=== PATIENT | female | born 1985 | race Caucasian/White ===

== ENCOUNTER 2018-04-21 22:38 | Emergency (ER) | payer OTHER ==
[2018-04-21] MEDS ORDERED: NACL 0.9% 1000 ML 1,000 ML IV ONE (23:26)
[2018-04-21] MEDS ORDERED: ZOFRAN IV ONE (23:26)
[2018-04-21] MEDS ORDERED: TYLENOL PO ONE (23:27)
--- NOTE | 2018-04-21 23:30 | Emergency Department Report ---
ED Female HPI - General Chief complaint: Vaginal Bleeding Stated complaint: ABDOMINAL PAIN/VAGINAL BLEEDING Time Seen by Provider: 04/21/18 23:10 Source: patient Mode of arrival: Stretcher Limitations: No Limitations - History of Present Illness Initial comments: Ms. Broussard is a who is 8 weeks . She is healthy. She has hx of kidney stones. Confirmed at [facility] 2 weeks ago. Suddenly onset of contractions, pelvic pain and cramping. Severe vaginal bleeding one hour ago. MD Complaint: vaginal bleeding -: Sudden, hour(s) (1) Location: suprapubic Radiation: non-radiating Severity: severe Quality: cramping Consistency: constant Are you Now?: Yes Last Menstrual Period: 02/15/18 EDC: 11/22/18 Associated Symptoms: vaginal bleeding, abdominal pain. denies: nausea/vomiting , fever/chills, headaches, loss of appetite, shortness of breath - Related Data Previous Rx's Medication Instructions Recorded Last Taken Type HYDROcodone/APAP 5-325 [[place] 1 each PO Q6HR PRN #10 tablet 04/22/18 Unknown Rx 5/325] Ibuprofen 800 mg PO Q6H PRN #15 tablet 04/22/18 Unknown Rx Allergies Allergy/AdvReac Type Severity Reaction Status Date / Time No Known Allergies Allergy Unverified 04/21/18 23:14 ED Review of Systems ROS: Stated complaint: ABDOMINAL PAIN/VAGINAL BLEEDING Other details as noted in HPI Comment: All other systems reviewed and negative Constitutional: denies: fever, malaise Respiratory: denies: cough Cardiovascular: denies: chest pain ED Past Medical Hx - Past Medical History Hx Kidney Stones: Yes - Surgical History Past Surgical History?: No - Social History Smoking Status: Never Smoker Substance Use Type: None - Medications Home Medications: Home Medications Medication Instructions Recorded Confirmed Last Taken Type HYDROcodone/APAP 5-325 [[place] 1 each PO Q6HR PRN #10 tablet 04/22/18 Unknown Rx 5/325] Ibuprofen 800 mg PO Q6H PRN #15 tablet 04/22/18 Unknown Rx ED Physical Exam - General Limitations: No Limitations General appearance: alert, in no apparent distress - Head Head exam: Present: atraumatic, normocephalic - Eye Eye exam: Present: normal appearance - ENT ENT exam: Present: mucous membranes moist - Neck Neck exam: Present: normal inspection. Absent: tenderness, meningismus - Respiratory Respiratory exam: Present: normal lung sounds bilaterally. Absent: respiratory distress, wheezes, rales, rhonchi - Cardiovascular Cardiovascular Exam: Present: regular rate, normal rhythm, normal heart sounds. Absent: systolic murmur, diastolic murmur, rubs, gallop - GI/Abdominal GI/Abdominal exam: Present: soft, normal bowel sounds. Absent: distended, tenderness, rebound - Extremities Exam Extremities exam: Present: normal inspection - Back Exam Back exam: Present: normal inspection - Neurological Exam Neurological exam: Present: alert, oriented X3 - Psychiatric Psychiatric exam: Present: normal affect, normal mood - Skin Skin exam: Present: warm, dry, intact, normal color. Absent: rash ED Course Vital Signs 04/21/18 04/21/18 04/21/18 22:56 23:00 23:07 Temperature 99.2 F Pulse Rate 88 Respiratory 16 Rate Blood Pressure 105/60 105/60 105/60 O2 Sat by Pulse 96 99 100 Oximetry 04/21/18 04/21/18 04/21/18 23:15 23:36 23:45 Temperature Pulse Rate Respiratory Rate Blood Pressure 105/75 116/71 O2 Sat by Pulse 100 100 99 Oximetry 04/21/18 04/21/18 04/22/18 23:51 23:55 00:00 Temperature Pulse Rate Respiratory 16 Rate Blood Pressure 107/62 116/71 O2 Sat by Pulse 100 100 Oximetry 04/22/18 04/22/18 04/22/18 00:15 00:30 01:09 Temperature Pulse Rate Respiratory Rate Blood Pressure 111/78 108/67 111/78 O2 Sat by Pulse 100 99 99 Oximetry 04/22/18 04/22/18 04/22/18 01:15 01:30 01:45 Temperature Pulse Rate Respiratory Rate Blood Pressure 99/51 98/58 95/61 O2 Sat by Pulse 100 98 99 Oximetry ED Medical Decision Making - Lab Data Result diagrams: 04/21/18 23:33 04/21/18 23:33 Laboratory Results - last 24 hr 04/21/18 04/21/18 04/21/18 23:33 23:33 23:33 WBC 9.0 RBC 4.40 Hgb 13.2 Hct 40.3 MCV 92 MCH 30 MCHC 33 RDW 14.2 Plt Count 209 Lymph % (Auto) 25.7 [place] % (Auto) 5.6 Eos % (Auto) 1.0 Baso % (Auto) 0.2 Lymph # 2.3 [place] # 0.5 Eos # 0.1 Baso # 0.0 Seg Neutrophils % 67.5 Seg Neutrophils # 6.1 Sodium 135 L Potassium 3.7 Chloride 100.3 Carbon Dioxide 21 L Anion Gap 17 BUN 10 Creatinine 0.4 L Estimated GFR > 60 BUN/Creatinine Ratio 25 Glucose 93 Calcium 8.7 HCG, Quant 51761 H Blood Type 04/21/18 23:33 WBC RBC Hgb Hct MCV MCH MCHC RDW Plt Count Lymph % (Auto) [place] % (Auto) Eos % (Auto) Baso % (Auto) Lymph # [place] # Eos # Baso # Seg Neutrophils % Seg Neutrophils # Sodium Potassium Chloride Carbon Dioxide Anion Gap BUN Creatinine Estimated GFR BUN/Creatinine Ratio Glucose Calcium HCG, Quant Blood Type O POSITIVE - Radiology Data Radiology results: report reviewed no IUP - Medical Decision Making Unfortunately Mrs. Broussard had spontaneous . She passed the remaining products of conception in the ED after US was obtained. I was able to examine the expelled contents. Family member provided language interpretation to patient and . rx: ibuprofen and norco Critical care attestation.: If time is entered above; I have spent that time in minutes in the direct care of this critically ill patient, excluding procedure time. ED Disposition Clinical Impression: Spontaneous Disposition: - TO HOME OR SELFCARE Is pt being admited?: No Does the pt Need Aspirin: No Condition: Stable Instructions: Spontaneous Miscarriage (ED) Prescriptions: HYDROcodone/APAP 5-325 [[place] 5/325] 1 each PO Q6HR PRN #10 tablet PRN Reason: Pain Ibuprofen 800 mg PO Q6H PRN #15 tablet PRN Reason: Pain, Mild (1-3) Referrals: ANGELA CASIANO MD [Staff Physician] - 3-5 Days Time of Disposition: 02:19
[2018-04-21 23:55] LABS: Basophils % (Auto) 0.2 % (0.0-1.8); Eosinophils # (Auto) 0.1 K/mm3 (0.0-0.4); Hematocrit 40.3 % (30.3-42.9); Hemoglobin 13.2 gm/dl (10.1-14.3); Lymphocytes # (Auto) 2.3 K/mm3 (1.2-5.4); Lymphocytes % (Auto) 25.7 % (13.4-35.0); Mean Corpuscular HGB Conc 33 % (30-34); Mean Corpuscular Hemoglobin 30 pg (28-32); Mean Corpuscular Volume 92 fl (79-97); Monocytes # (Auto) 0.5 K/mm3 (0.0-0.8); Monocytes % (Auto) 5.6 % (0.0-7.3); Platelet Count 209 K/mm3 (140-440); Red Cell Distribution Width 14.2 % (13.2-15.2)
[2018-04-22 00:07] LABS: BUN/Creatinine Ratio 25; Blood Urea Nitrogen 10 mg/dL (7-17); Calcium 8.7 mg/dL (8.4-10.2); Hemolysis Index 1
--- NOTE | 2018-04-22 01:53 | Ultrasound Report ---
FINAL REPORT PROCEDURE: US OB < = 14 WEEKS FETUS TECHNIQUE: Real-time transabdominal sonography of the uterus, placenta, amniotic fluid, adnexa, and fetus was performed with image documentation. Measurements were obtained to determine age/size. M-mode Doppler was used to document heartbeat. CPT 99965 HISTORY: Vaginal bleeding. COMPARISON: No prior studies are available for comparison. FINDINGS: LMP: 02/19/2018. Clinical age: 8 weeks 6 days. EDC: 11/26/2018. UTERUS Size: 11.1 x 5.7 x 6.7 cm. Endometrial thickness: 18.5 mm. Thickened heterogeneous endometrial stripe. Hypoechoic area in the vaginal canal measuring 10 x 8 x 13 mm. Orientation: anteverted. Cervix: Normal. Fibroids/masses: None. RIGHT Ovary: 2.9 x 2.0 x 2.2 cm. Appearance: Hypoechoic 2.6 x 1.1 x 1.5 cm lesion. Normal flow.. LEFT Ovary: 2.8 x 1.6 x 2.4 cm. Appearance: Normal flow. Pelvic fluid: None. Other: None. IMPRESSION: There is no sonographic evidence of intrauterine . Thickened heterogeneous endometrial stripe. Consider findings could represent very early intrauterine that is not sonographically apparent. Hypoechoic area in the vaginal canal, consider could represent complex vaginal cyst, small blood clot, also consider could represent impending miscarriage. Recommend clinical correlation, correlation with beta HCG, and short-term followup pelvic ultrasound. Hypoechoic right ovarian lesion likely cyst. Without definite intrauterine , ectopic cannot be excluded if felt to unlikely. This can also be evaluated with clinical correlation, correlation with beta HCG, and short-term followup pelvic ultrasound.
[2018-04-22] MEDS ORDERED: NACL 0.9% 1000 ML 1,000 ML IV ONE (01:59)
[2018-04-22] MEDS ORDERED: TORADOL IV ONE (02:16)
[2018-04-22] MEDS ORDERED: DILAUDID IV ONE (02:16)
[2018-04-22 03:21] VITALS: BP 102/42
== END 2018-04-22 03:34 | disposition home or self-care (01) ==
LOC: ED 22:38
DX: O03.9 Complete or unspecified spontaneous abortion without complication (principal); Z3A.08 8 weeks gestation of pregnancy
CPT/HCPCS: 36415; 76801; 80048; 84702; 85025; 86900; 86901; 96374; 99284; J2405; J7030